=== PATIENT | female | born 1990 | race Caucasian/White ===

== ENCOUNTER 2019-03-22 18:29 | Emergency (ER) | payer OTHER ==
[~2019-03-22] VITALS: Ht 160 cm; Wt 82.3 kg
[2019-03-22 18:49] VITALS: Ht 160 cm; Wt 82.3 kg
[2019-03-22] MEDS ORDERED: DIPHENHYDRAMINE 50 MG INJ IV STA (20:55)
[2019-03-22] MEDS ORDERED: SOD CHLORIDE 0.9% 1,000 ML IV STA (20:55)
[2019-03-22] MEDS ORDERED: ONDANSETRON 4 MG INJ IV STA (20:55)
[2019-03-22] MEDS ORDERED: KETOROLAC 30 MG INJ IV STA (20:55)
[2019-03-22] MEDS ORDERED: BUTA1CAP38 PO (21:52)
[2019-03-22 22:01] VITALS: BP 120/65; PULSE 85; RESP 18
--- NOTE | 2019-03-22 23:19 | ERD ---
ER Documentation Chief Complaint Chief Complaint C/O HUANG, LIGHT HEADED, DIZZY X'S 4 DAYS HPI 28-year-old female presenting with lightheadedness and dizziness x4 days. Patient has a mild headache in the front with history as a migraine. She states that this is been intermittent and persistent over the last 4 days which is not normal for her migraines. She has had no vomiting but feels nauseous. Denies any fevers. Denies chest pain or shortness of breath. Denies medical pause. NKDA. Surgical history cholecystectomy 2 years ago. Social history denies. LNMP February 22 ROS All systems reviewed and are negative except as per history of present illness. Medications Home Meds Active Scripts Juewephcjj-Avzyyyhyqzpqo-Unrvcsbo* (Fioricet*) 50-300-40 Mg Capsule, 1 CAP PO Q 4H PRN for HEADACHE, #30 CAP Prov:BROOK ANTONIO PA-C 03/22/19 Allergies Allergies: Coded Allergies: No Known Allergy (Unverified , 03/22/19) PMhx/Soc Medical and Surgical Hx: pt denies Medical Hx, pt denies Surgical Hx Hx Alcohol Use: No Hx Substance Use: No Hx Tobacco Use: No Smoking Status: Never smoker FmHx Family History: No diabetes, No coronary disease, No other Physical Exam Vitals Vital Signs Date Temp Pulse Resp B/P (MAP) Pulse Ox O2 O2 Flow FiO2 Time Delivery Rate 03/22/19 98.9 85 18 120/65 99 Room Air 22:01 (83) 03/22/19 98.7 78 18 108/69 100 18:49 (82) Physical Exam GENERAL: The patient is well-appearing, well-nourished, in no acute distress HEENT: Atraumatic. Conjunctivae are pink. Pupils equal, round, and reactive to light. There is no scleral icterus. Tympanic membranes clear bilaterally. Oropharynx clear. No nystagmus or photophobia. CHEST: Clear to auscultation bilaterally. There are no rales, wheezes or rhonchi. HEART: Regular rate and rhythm. No murmurs, clicks, rubs or gallops. No S3 or S4. NEUROLOGIC: Alert and oriented. Cranial nerves II through XII intact. Motor strength in all 4 extremities with 5 out of 5 strength. Sensation grossly intact. Normal speech and gait. Result Diagram: 03/22/19210503/22/192105 Results 24 hrs Laboratory Tests Test 03/22/19 21:02 03/22/19 21:06 POC Beta HCG, Qualitative NEGATIVE White Blood Count 8.8 10^3/ul Red Blood Count 4.37 10^6/ul Hemoglobin 12.8 g/dl Hematocrit 39.1 % Mean Corpuscular Volume 89.5 fl Mean Corpuscular Hemoglobin 29.3 pg Mean Corpuscular Hemoglobin Concent 32.7 g/dl Red Cell Distribution Width 12.6 % Platelet Count 263 10^3/UL Mean Platelet Volume 11.0 fl Immature Granulocytes % 0.200 % Neutrophils % 63.4 % Lymphocytes % 29.5 % Monocytes % 5.9 % Eosinophils % 0.5 % Basophils % 0.5 % Nucleated Red Blood Cells % 0.0 /100WBC Immature Granulocytes # 0.020 10^3/ul Neutrophils # 5.6 10^3/ul Lymphocytes # 2.6 10^3/ul Monocytes # 0.5 10^3/ul Eosinophils # 0.0 10^3/ul Basophils # 0.0 10^3/ul Nucleated Red Blood Cells # 0.0 10^3/ul Urine Color YELLOW Urine Clarity CLOUDY Urine pH 5.0 Urine Specific Media 1.021 Urine Ketones NEGATIVE mg/dL Urine Nitrite NEGATIVE mg/dL Urine Bilirubin NEGATIVE mg/dL Urine Urobilinogen NEGATIVE mg/dL Urine Leukocyte Esterase NEGATIVE Miguel/ul Urine Microscopic RBC 3 /HPF Urine Microscopic WBC 2 /HPF Urine Squamous Epithelial Cells MODERATE /HPF Urine Bacteria FEW /HPF Urine Mucus FEW /HPF Urine Hemoglobin NEGATIVE mg/dL Urine Glucose NEGATIVE mg/dL Urine Total Protein NEGATIVE mg/dl Sodium Level 140 mmol/L Potassium Level 4.2 mmol/L Chloride Level 103 mmol/L Carbon Dioxide Level 29 mmol/L Anion Gap 8 Blood Urea Nitrogen 9 mg/dl Creatinine 0.67 mg/dl Est Glomerular Filtrat Rate mL/min > 60 mL/min Glucose Level 89 mg/dl Calcium Level 9.9 mg/dl Current Medications Medications Dose Sig/Serg Start Time Status Last (Trade) Ordered Route PRN Stop Time Admin Dose Reason Admin Sodium 1,000 ml @ Q1H STAT 03/22/19 DC 03/22/19 Chloride 1,000 mls/hr IV 20:55 21:15 03/22/19 21:54 Ondansetron 4 mg ONCE STAT 03/22/19 DC 03/22/19 HCl (Zofran IV 20:55 21:15 Inj) 03/22/19 20:57 Ketorolac 30 mg ONCE STAT 03/22/19 DC 03/22/19 Tromethamine IV 20:55 21:15 (Toradol) 03/22/19 20:57 25 mg ONCE STAT 03/22/19 DC 03/22/19 Diphenhydrami IV 20:55 21:15 ne HCl 03/22/19 20:57 (Benadryl) Procedures/MDM DIAGNOSTIC IMAGING REPORT Patient: RAMON ISLAS : 1990 Age: 28 Sex: F MR #: [id number] DOS: 03/22/192054 Ordering MD: JAROD ANTONIO PA-C Location: E Room/Bed: PROCEDURE: CT Brain without contrast. CLINICAL INDICATION: Headache. TECHNIQUE: A CT of the brain without contrast was performed utilizing axial sections from the skull base through the vertex. One or more the following does reduction techniques were utilized: Automated exposure control, adjustment of the mA/ or kV according to patient's size, or use of iterative reconstruction technique. Total exam CTDIvol is 40 MGy and DLP is 634 mGy-cm. DICOM images are available. COMPARISON: None available. FINDINGS: The ventricles and sulci are age-appropriate. There is no intracranial hemorrhage, mass effect or midline shift. No abnormal intra-axial or extra-ax ial fluid collections are seen. The park/white matter differentiation is preserved. No acute skull abnormality is noted. The visualized paranasal sinuses are essentially clear. IMPRESSION: 1. No acute intracranial hemorrhage, transcortical infarction or mass effect. ER Course: Blood work within normal limits. 1 L normal saline, Toradol, Zofran and Benadryl given ED. Symptoms improved. MDM: 28-year-old female presenting with headache. I will suspicion for intracranial hemorrhage or neuro deficit. Exam is non-concerning CT scan is within normal blood work is stable. Patient symptoms improved with treatment in the ED. Patient is told if symptoms change or worsen to return immediately to the ER. Patient is told if symptoms change or worsen to return immediately to the ER. All questions answered at discharge Departure Diagnosis: Primary Impression: Dizziness Additional Impression: Headache Condition: Stable Patient Instructions: Dizziness, Unk Cause, Headache, Unspecified Referrals: [facility] YOU HAVE RECEIVED A MEDICAL SCREENING EXAM AND THE RESULTS INDICATE THAT YOU DO NOT HAVE A CONDITION THAT REQUIRES URGENT TREATMENT IN THE EMERGENCY DEPARTMENT. FURTHER EVALUATION AND TREATMENT OF YOUR CONDITION CAN WAIT UNTIL YOU ARE SEEN IN YOUR DOCTORS OFFICE WITHIN THE NEXT 1-2 DAYS. IT IS YOUR RESPONSIBILITY TO MAKE AN APPOINTMENT FOR FOLOW-UP CARE. IF YOU HAVE A PRIMARY DOCTOR --you should call your primary doctor and schedule an appointment IF YOU DO NOT HAVE A PRIMARY DOCTOR YOU CAN CALL OUR PHYSICIAN REFERRAL HOTLINE AT IF YOU CAN NOT AFFORD TO SEE A PHYSICIAN YOU CAN CHOSE FROM THE FOLLOWING [facility] [address] [facility] [address] [facility] [address] [facility] [address] [facility] [address] [facility]. [facility]. [address] Additional Instructions: FOLLOW UP WITH YOUR PRIMARY CARE PHYSICIAN TOMORROW.Return to this facility if you are not improving as expected. BROOK ANOTNIO PA-C Mar 22, 2019 23:19
== END 2019-03-22 22:03 | disposition home or self-care (01) ==
LOC: FTE 18:29
DX: R42 Dizziness and giddiness (principal); R51 Headache
CPT/HCPCS: 36415; 70450; 80048; 81001; 81025; 85025; 96374; 96375; J1200; J1885; J2405; J7030; Z7502